=== PATIENT | male | born 1985 | race Caucasian/White ===

== ENCOUNTER 2022-04-09 03:59 | Day surgery (SDC) | payer OTHER ==
[~2022-04-09] VITALS: Ht 182.9 cm; Wt 98.9 kg
[2022-04-09] VITALS (235 sets, daily range): BP systolic 105–165; BP diastolic 55–116
[2022-04-09 08:31] LABS: BASO% 0.9 % (0-3); EOS% 11.6 % (0-8); HEMATOCRIT 40.7 % (39.0-50.0); HEMOGLOBIN 12.6 g/dl (14.0-18.0); LYMPH% 42.1 % (15-41); MEAN CELL VOLUME 90.8 fL CALC (80.0-100.0); MEAN CORPUSCULAR HGB 28.1 pG CALC (26.0-32.0); MONO% 10.1 % (2-13); NEUT# 1.16 thou/uL (1.82-7.42); NEUT% 35.3 % (42-76); RED BLOOD COUNT 4.48 mill/uL (4.70-6.10); RED CELL DISTRI WIDTH 12.3 % (11.5-15.5)
[2022-04-09 08:33] LABS: ALBUMIN 4.1 g/dL (3.2-5.0); ALKALINE PHOSPHATASE 57 u/l (38-126); ANION GAP 7 (6-22 (CALC)); BILIRUBIN, TOTAL 0.5 mg/dL (0.2-1.3); BUN 14 mg/dL (9-20); BUN/CREATININE RATIO 17 (12-20 (CALC)); CARBON DIOXIDE 30 mmol/l (22-30); CHLORIDE 107 mmol/l (95-108); CREATININE 0.8 mg/dL (0.7-1.3); GFR FOR AFR.AMER. > 60 ML/MIN (>=60 (CALC)); GFR OTHER RACES > 60 ML/MIN (>=60 (CALC)); POTASSIUM 3.4 mmol/l (3.5-5.1); SGOT/AST 34 u/l (17-59); SODIUM 140 mmol/l (137-146); TOTAL PROTEIN 6.9 g/dL (6.3-8.2)
[2022-04-09] MEDS ORDERED: LISINOPRIL10 MG PO (08:40)
[2022-04-09] MEDS ORDERED: CLONIDINE0.1 MG PO ×2 (08:41→15:11)
[2022-04-09] MEDS ORDERED: KLONOPIN2 MG PO (15:10)
[2022-04-09] MEDS ORDERED: NALTREXONE50 MG PO (15:10)
[2022-04-10 00:37] VITALS: BP 139/92
[2022-04-10 03:53] VITALS: BP 142/97
[2022-04-10 05:27] LABS: BASO% 0.4 % (0-3); HEMATOCRIT 45.3 % (39.0-50.0); HEMOGLOBIN 14.2 g/dl (14.0-18.0); IMMATURE GRANULOCYTES 0.2 % (0.0-5.0); LYMPH% 12.7 % (15-41); MEAN CELL VOLUME 89.3 fL CALC (80.0-100.0); MEAN CORPUSCULAR HGB CONC 31.3 g/dL CAL (32.0-36.0); MONO% 3.3 % (2-13); NEUT# 4.59 thou/uL (1.82-7.42); NEUT% 83.4 % (42-76); RED BLOOD COUNT 5.07 mill/uL (4.70-6.10); RED CELL DISTRI WIDTH 12.2 % (11.5-15.5)
[2022-04-10 05:44] LABS: ALBUMIN 3.9 g/dL (3.2-5.0); ALKALINE PHOSPHATASE 68 u/l (38-126); BUN 11 mg/dL (9-20); BUN/CREATININE RATIO 13 (12-20 (CALC)); CHLORIDE 110 mmol/l (95-108); CREATININE 0.8 mg/dL (0.7-1.3); GFR FOR AFR.AMER. > 60 ML/MIN (>=60 (CALC)); GFR OTHER RACES > 60 ML/MIN (>=60 (CALC)); MAGNESIUM 2.4 mg/dL (1.6-2.3); SGOT/AST 38 u/l (17-59); SODIUM 140 mmol/l (137-146)
[2022-04-10 05:45] LABS: ANION GAP 11 (6-22 (CALC)); BILIRUBIN, TOTAL 0.8 mg/dL (0.2-1.3); CARBON DIOXIDE 23 mmol/l (22-30); POTASSIUM 4.4 mmol/l (3.5-5.1)
[2022-04-10 08:00] VITALS: BP 146/97
[2022-04-10 13:25] VITALS: BP 173/98
[2022-04-10 13:47] VITALS: BP 173/98
== END 2022-04-10 19:47 | disposition home or self-care (01) | DRG 897 ==
LOC: MS2 03:59 → ANR 03:59 → MS2 04:00 → ANR 07:00 → MS2 15:05 → ANR 04-10 19:47
PROVIDERS: ATTEND Anesthesiology
DX: F11.20 Opioid dependence, uncomplicated (principal)
CPT/HCPCS: J2354; J3475